=== PATIENT | female | born 1995 | race Native Hawaiian/Other Pacific Islander ===

== ENCOUNTER 2018-02-18 14:38 | Emergency (ER) | payer BC ==
[~2018-02-18] VITALS: Ht 157.5 cm; Wt 68.0 kg
--- NOTE | 2018-02-18 14:40 | NUR ---
CHEST PAIN RADIATING TO LEFT ARM, LEFT ARM NUMBESS NAUSEA. PLACED ON MONITOR.
--- NOTE | 2018-02-18 15:51 | NUR ---
Patient discharged to home in stable condition. Written and verbal after care instructions given. Patient verbalizes understanding of instruction.
[2018-02-18 15:55] VITALS: BP 114/74
== END 2018-02-18 15:55 | disposition home or self-care (01) ==
LOC: ER 14:42
DX: R07.89 Other chest pain (principal)
CPT/HCPCS: 71045-TC; A4606; Z7610